=== PATIENT | female | born 1995 ===

== ENCOUNTER 2017-04-11 20:24 | Emergency (ER) | payer OTHER ==
[~2017-04-11] VITALS: Ht 147.3 cm; Wt 58.5 kg
[~2017-04-11 20:24] MED LIST: CEPH250SUA PO; CETI10 PO; CODACEE120 PO; DIPH25; EPIN0.15 IM; HYDR.5TC; IBUP200; KETO10 PO; METPHE10 PO; PRED20 PO; PRED5EL PO; SERT25 PO; TRIA80TC TOP; Veetids 500500 MG PO
[2017-04-11 20:52] LABS: Source, Urine Clean Catch
[2017-04-11 21:03] LABS: Bilirubin, Urine Neg (Neg); Blood, Urine Neg (Neg); Glucose Qualitative, Urine Neg (Neg); Ketones, Urine 3+ (Neg); Leukocyte Esterase, Urine 2+ (Neg); Nitrite, Urine Pos (Neg); Protein, Urine 1+ (Neg); Urobilinogen, Urine NORM (Normal)
[2017-04-11 21:10] LABS: Appearance, Urine Clear (Clear); Bacteria Many /hpf; Color, Urine Yellow (P-Yellow); Red Blood Cells, Urine 0-2 /hpf (0-2); Squamous Epithelial Cells Few /hpf (Few)
[2017-04-12 01:44] LABS: BASOPHILS ABSOLUTE AUTO 0.02 K/mm3 (0.00-0.23); BASOPHILS PERCENT AUTO 0 % (0-2); EOSINOPHILS ABSOLUTE AUTO 0.06 K/mm3 (0.00-0.68); EOSINOPHILS PERCENT AUTO 1 % (0-6); Hematocrit 45.2 % (33.0-51.0); Hemoglobin 15.4 g/dL (11.5-16.0); IMMATURE GRAN ABSOLUTE AUTO 0.02 K/mm3 (0.00-0.10); IMMATURE GRAN PERCENT AUTO 0 % (0-1); LYMPHOCYTES ABSOLUTE AUTO 2.39 K/mm3 (0.84-5.20); LYMPHOCYTES PERCENT AUTO 22 % (21-46); MONOCYTES ABSOLUTE AUTO 0.92 K/mm3 (0.16-1.47); MONOCYTES PERCENT AUTO 9 % (4-13); Mean Corpuscular HGB 28.7 pg (26.0-34.0); Mean Corpuscular HGB Conc 34.1 g/dL (31.5-36.5); Mean Corpuscular Volume 84 fL (80-100); Mean Platelet Volume 11.4 fL (9.1-12.4); NEUTROPHILS ABSOLUTE AUTO 7.28 K/mm3 (1.96-9.15); NEUTROPHILS PERCENT AUTO 68 % (41-73); Platelet Count 269 K/mm3 (150-400); RDW Coefficient Variation 13.9 % (11.7-14.2); RDW Standard Deviation 42.6 fL (35.1-46.3); Red Blood Cell Count 5.37 M/mm3 (3.80-5.20); White Blood Cell Count 10.69 K/mm3 (4.00-11.30)
[2017-04-12 02:00] LABS: Alanine Aminotransfer (ALT/SGP 20 U/L (12-78); Albumin, Blood 3.6 g/dL (3.4-5.0); Albumin/Globulin Ratio 0.8 (0.8-1.8); Alk Phos 101 U/L (50-136); Anion Gap 8 mmol/L (6-16); Aspartate Aminotrans (AST/SGOT 23 U/L (12-37); Bilirubin, Total 0.7 mg/dL (0.1-1.0); Blood Urea Nitrogen 10 mg/dL (8-24); Bun/Creatinine Ratio 13.8 (12.0-20.0); CO2, Blood 24 mmol/L (21-32); Calcium, Blood 9.1 mg/dL (8.5-10.1); Chloride, Blood 105 mmol/L (98-108); Creatinine, Blood 0.73 mg/dL (0.40-1.00); Globulin, Blood 4.3 g/dL (2.2-4.0); Glomerular Filtration Rate >60 (60-); Glucose, Blood 83 mg/dL (70-99); Potassium, Blood 3.6 mmol/L (3.5-5.5); Sodium, Blood 137 mmol/L (136-145); Total Protein, Blood 7.9 g/dL (6.4-8.2)
[2017-04-12] MEDS ORDERED: CEPH500 PO (02:19)
== END 2017-04-12 02:41 | disposition home or self-care (01) ==
LOC: ER 20:24
PROVIDERS: Emergency Medicine
DX: N39.0 Urinary tract infection, site not specified (principal); F17.200 Nicotine dependence, unspecified, uncomplicated
CPT/HCPCS: 36415; 80053; 81001; 81025; 83690; 85025; 87077; 87086; 87186; 96365; 96375; 99283; J0696; J2405; J7030

== ENCOUNTER 2017-05-06 12:20 | Emergency (ER) | payer OTHER ==
[~2017-05-06] VITALS: Ht 147.3 cm; Wt 61.7 kg
[~2017-05-06 12:20] MED LIST changes: +CEPH500 PO
== END 2017-05-06 15:00 | disposition home or self-care (01) ==
LOC: ER 12:20
DX: J02.9 Acute pharyngitis, unspecified (principal); M25.512 Pain in left shoulder; F90.9 Attention-deficit hyperactivity disorder, unspecified type; F17.200 Nicotine dependence, unspecified, uncomplicated
CPT/HCPCS: 87081; 87430; 96372; 99283; J1885

== ENCOUNTER 2018-06-21 14:51 | Emergency (ER) | payer SELFPAY ==
[~2018-06-21] VITALS: Ht 147.3 cm; Wt 77.1 kg
[2018-06-21 16:42] LABS: Source, Urine Clean Catch
[2018-06-21 16:46] LABS: Appearance, Urine Clear (Clear); Bilirubin, Urine Neg (Neg); Blood, Urine Neg (Neg); Color, Urine Yellow (P-Yellow); Glucose Qualitative, Urine Neg (Neg); Ketones, Urine 4+ (Neg); Leukocyte Esterase, Urine Neg (Neg); Nitrite, Urine Neg (Neg); Protein, Urine 2+ (Neg); Specific Gravity, Urine 1.005 (1.003-1.022); Urobilinogen, Urine NORM (Normal)
[2018-06-21 16:59] LABS: Red Blood Cells, Urine 0-2 /hpf (0-2)
[2018-06-21 17:00] LABS: Bacteria Few /hpf; Renal Epithelial Rare /hpf (0-Rare); Squamous Epithelial Cells Mod /hpf (Few)
[2018-06-21] MEDS ORDERED: CEPH500 PO (17:20)
== END 2018-06-21 17:42 | disposition home or self-care (01) ==
LOC: ER 14:51
PROVIDERS: Physician Assistant
DX: N39.0 Urinary tract infection, site not specified (principal); R10.2 Pelvic and perineal pain; F17.200 Nicotine dependence, unspecified, uncomplicated
CPT/HCPCS: 81001; 81025; 96372; 99284; J1885

== ENCOUNTER → 2018-12-17 | Outpatient (CLI) | payer OTHER ==
[~2018-12-17] MED LIST changes: +OMEP20ER PO; +ONDA4 PO; +Oxycodone HCl5 M1
[2018-12-17 14:46] LABS: BASOPHILS ABSOLUTE AUTO 0.03 K/mm3 (0.00-0.23); BASOPHILS PERCENT AUTO 0 % (0-2); EOSINOPHILS ABSOLUTE AUTO 0.06 K/mm3 (0.00-0.68); EOSINOPHILS PERCENT AUTO 1 % (0-6); Hematocrit 46.1 % (33.0-51.0); Hemoglobin 15.7 g/dL (11.5-16.0); IMMATURE GRAN ABSOLUTE AUTO 0.03 K/mm3 (0.00-0.10); IMMATURE GRAN PERCENT AUTO 0 % (0-1); LYMPHOCYTES ABSOLUTE AUTO 1.43 K/mm3 (0.84-5.20); LYMPHOCYTES PERCENT AUTO 14 % (21-46); MONOCYTES ABSOLUTE AUTO 0.57 K/mm3 (0.16-1.47); MONOCYTES PERCENT AUTO 6 % (4-13); Mean Corpuscular HGB 29.2 pg (26.0-34.0); Mean Corpuscular HGB Conc 34.1 g/dL (31.5-36.5); Mean Corpuscular Volume 86 fL (80-100); Mean Platelet Volume 10.8 fL (9.1-12.4); NEUTROPHILS ABSOLUTE AUTO 8.32 K/mm3 (1.96-9.15); NEUTROPHILS PERCENT AUTO 80 % (41-73); Platelet Count 232 K/mm3 (150-400); RDW Coefficient Variation 12.7 % (11.7-14.2); RDW Standard Deviation 39.1 fL (35.1-46.3); Red Blood Cell Count 5.37 M/mm3 (3.80-5.20); White Blood Cell Count 10.44 K/mm3 (4.00-11.30)
[2018-12-17 14:55] LABS: Alanine Aminotransfer (ALT/SGP 204 U/L (12-78); Albumin, Blood 3.7 g/dL (3.4-5.0); Albumin/Globulin Ratio 0.8 (0.8-1.8); Alk Phos 238 U/L (40-126); Anion Gap 9 mmol/L (6-16); Aspartate Aminotrans (AST/SGOT 80 U/L (12-37); Bilirubin, Total 1.9 mg/dL (0.1-1.0); Blood Urea Nitrogen 11 mg/dL (8-24); Bun/Creatinine Ratio 10.6 (12.0-20.0); CO2, Blood 29 mmol/L (21-32); Calcium, Blood 8.9 mg/dL (8.5-10.1); Chloride, Blood 100 mmol/L (98-108); Creatinine, Blood 1.04 mg/dL (0.40-1.00); Globulin, Blood 4.9 g/dL (2.2-4.0); Glomerular Filtration Rate >60 (60-); Glucose, Blood 86 mg/dL (70-99); Potassium, Blood 3.7 mmol/L (3.5-5.5); Sodium, Blood 138 mmol/L (136-145); Total Protein, Blood 8.6 g/dL (6.4-8.2)
== END | disposition home or self-care (01) ==
LOC: LAB SHORT 14:40 → LAB EV 14:40
PROVIDERS: Physician Assistant Medical
DX: R10.13 Epigastric pain (principal)
CPT/HCPCS: 80053; 83690; 85025

== ENCOUNTER 2018-12-19 19:49 | Emergency (ER) | payer OTHER ==
[~2018-12-19] VITALS: Ht 147.3 cm; Wt 77.1 kg
[~2018-12-19 19:49] MED LIST changes: -OMEP20ER PO; -ONDA4 PO; -Oxycodone HCl5 M1
[2018-12-19] MEDS ORDERED: Oxycodone HCl5 M1 (20:13)
[2018-12-19] MEDS ORDERED: OMEP20ER PO (20:14)
[2018-12-19] MEDS ORDERED: ONDA4 PO (20:14)
[2018-12-19 20:33] LABS: BASOPHILS ABSOLUTE AUTO 0.04 K/mm3 (0.00-0.23); BASOPHILS PERCENT AUTO 0 % (0-2); EOSINOPHILS PERCENT AUTO 0 % (0-6); Hematocrit 44.8 % (33.0-51.0); Hemoglobin 15.2 g/dL (11.5-16.0); IMMATURE GRAN PERCENT AUTO 1 % (0-1); LYMPHOCYTES ABSOLUTE AUTO 0.65 K/mm3 (0.84-5.20); LYMPHOCYTES PERCENT AUTO 2 % (21-46); MONOCYTES ABSOLUTE AUTO 1.41 K/mm3 (0.16-1.47); MONOCYTES PERCENT AUTO 5 % (4-13); Mean Corpuscular HGB 29.6 pg (26.0-34.0); Mean Corpuscular HGB Conc 33.9 g/dL (31.5-36.5); Mean Corpuscular Volume 87 fL (80-100); NEUTROPHILS PERCENT AUTO 92 % (41-73); Platelet Count 259 K/mm3 (150-400); RDW Coefficient Variation 12.6 % (11.7-14.2); RDW Standard Deviation 39.7 fL (35.1-46.3); Red Blood Cell Count 5.14 M/mm3 (3.80-5.20)
[2018-12-19 21:02] LABS: Alanine Aminotransfer (ALT/SGP 117 U/L (12-78); Albumin, Blood 3.3 g/dL (3.4-5.0); Albumin/Globulin Ratio 0.9 (0.8-1.8); Alk Phos 170 U/L (50-136); Anion Gap 13 mmol/L (6-16); Aspartate Aminotrans (AST/SGOT 71 U/L (12-37); Bilirubin, Total 1.1 mg/dL (0.1-1.0); Blood Urea Nitrogen 6 mg/dL (8-24); CO2, Blood 17 mmol/L (21-32); Calcium, Blood 8.7 mg/dL (8.5-10.1); Chloride, Blood 108 mmol/L (98-108); Creatinine, Blood 0.67 mg/dL (0.40-1.00); Globulin, Blood 3.8 g/dL (2.2-4.0); Glomerular Filtration Rate >60 (60-); Glucose, Blood 174 mg/dL (70-99); Potassium, Blood 3.8 mmol/L (3.5-5.5); Sodium, Blood 138 mmol/L (136-145); Total Protein, Blood 7.1 g/dL (6.4-8.2)
== END 2018-12-19 23:56 | disposition short-term general hospital (02) ==
LOC: ER 19:49
PROVIDERS: Emergency Medicine
DX: K85.80 Other acute pancreatitis without necrosis or infection (principal); K80.50 Calculus of bile duct without cholangitis or cholecystitis without obstruction; F17.200 Nicotine dependence, unspecified, uncomplicated; Z79.899 Other long term (current) drug therapy; Z79.891 Long term (current) use of opiate analgesic
CPT/HCPCS: 36415; 74177; 80053; 83690; 84702; 85025; 96361; 96365-59; 96375; 96376; 99285-25; J0780; J1170; J2405; J2543; J2550; J7030; Q9967

== ENCOUNTER 2019-01-19 16:22 | Inpatient (IN) | payer OTHER ==
[~2019-01-19] VITALS: Ht 147.3 cm; Wt 70.5 kg
[2019-01-19 20:39] LABS: Base Excess Venous 0.1 mmol/L; Bicarbonate Venous 24.1 mmol/L (24.0-30.0); PCO2 Venous 34.5 mmHg (38-42); PO2 Venous 34.9 mmHg (38-42); pH Blood Venous 7.45 (7.34-7.37)
[2019-01-20 04:33] LABS: BASOPHILS ABSOLUTE AUTO 0.02 K/mm3 (0.00-0.23); BASOPHILS PERCENT AUTO 0 % (0-2); EOSINOPHILS ABSOLUTE AUTO 0.01 K/mm3 (0.00-0.68); EOSINOPHILS PERCENT AUTO 0 % (0-6); Hematocrit 36.1 % (33.0-51.0); Hemoglobin 11.7 g/dL (11.5-16.0); IMMATURE GRAN ABSOLUTE AUTO 0.07 K/mm3 (0.00-0.10); IMMATURE GRAN PERCENT AUTO 1 % (0-1); LYMPHOCYTES ABSOLUTE AUTO 1.21 K/mm3 (0.84-5.20); LYMPHOCYTES PERCENT AUTO 9 % (21-46); MONOCYTES ABSOLUTE AUTO 1.41 K/mm3 (0.16-1.47); MONOCYTES PERCENT AUTO 11 % (4-13); Mean Corpuscular HGB 28.2 pg (26.0-34.0); Mean Corpuscular HGB Conc 32.4 g/dL (31.5-36.5); Mean Platelet Volume 10.9 fL (9.1-12.4); NEUTROPHILS ABSOLUTE AUTO 10.26 K/mm3 (1.96-9.15); NEUTROPHILS PERCENT AUTO 79 % (41-73); Platelet Count 251 K/mm3 (150-400); RDW Coefficient Variation 13.9 % (11.7-14.2); RDW Standard Deviation 44.1 fL (35.1-46.3); Red Blood Cell Count 4.15 M/mm3 (3.80-5.20); White Blood Cell Count 12.98 K/mm3 (4.00-11.30)
[2019-01-20 04:46] LABS: Mean Corpuscular Volume 87 fL (80-100)
[2019-01-20 04:55] LABS: Anion Gap 8 mmol/L (6-16); Blood Urea Nitrogen 12 mg/dL (8-24); Bun/Creatinine Ratio 18.5 (12.0-20.0); CO2, Blood 27 mmol/L (21-32); Calcium, Blood 8.3 mg/dL (8.5-10.1); Chloride, Blood 106 mmol/L (98-108); Creatinine, Blood 0.65 mg/dL (0.40-1.00); Glomerular Filtration Rate >60 (60-); Glucose, Blood 185 mg/dL (70-99); Sodium, Blood 141 mmol/L (136-145)
--- NOTE | 2019-01-20 06:19 | NUR ---
SHIFT SUMMARY NEW ADMIT THIS SHIFT. AAOX4. DISCOMFORT CONTROLLED WITH 1MG IV DILAUDID X2 THIS SHIFT, ZOFRAN DECREASED NAUSEA WITH X1 EMESIS NOTED THIS AM. IVF + ABX PER ORDERS. CONSULT FOR INTERVENTIONAL RADIOLOGY UNABLE TO BE CALLED THIS SHIFT, WILL NOTIFY DAY SHIFT RN TO INFORM MD. PT RESTING AT THIS TIME WITH CALL LIGHT IN JARRET, MIKE.
--- NOTE | 2019-01-20 10:16 | NUR ---
DR GIRON REPORTS TALKING TO RADIOLOGIST HERE. DR GIRON REPORTED THAT THE RADIOLOGIST WOULD NOT BE ABLE TO COMPLETE PROCEDURE HERE UNTIL TUESDAY. DR GIRON TALKED WITH PT AND DISCUSSING TRANSFER TO [facility].
[2019-01-20 10:24] LABS: Alanine Aminotransfer (ALT/SGP 21 U/L (12-78); Albumin, Blood 2.8 g/dL (3.4-5.0); Albumin/Globulin Ratio 0.7 (0.8-1.8); Alk Phos 69 U/L (50-136); Anion Gap 8 mmol/L (6-16); Aspartate Aminotrans (AST/SGOT 17 U/L (12-37); Bilirubin, Total 0.5 mg/dL (0.1-1.0); Blood Urea Nitrogen 12 mg/dL (8-24); Bun/Creatinine Ratio 19.4 (12.0-20.0); CO2, Blood 25 mmol/L (21-32); Calcium, Blood 8.5 mg/dL (8.5-10.1); Chloride, Blood 106 mmol/L (98-108); Creatinine, Blood 0.62 mg/dL (0.40-1.00); Globulin, Blood 3.8 g/dL (2.2-4.0); Glomerular Filtration Rate >60 (60-); Glucose, Blood 180 mg/dL (70-99); Potassium, Blood 3.1 mmol/L (3.5-5.5); Sodium, Blood 139 mmol/L (136-145); Total Protein, Blood 6.6 g/dL (6.4-8.2)
--- NOTE | 2019-01-20 14:19 | NUR ---
TRANSFER PT A/O. PT BEING TRANSFERRED TO [facility]. REPORT GIVEN TO CHAYITO BUTLER. PT BEEN RECENTLY MED FOR PAIN AND NAUSEA. TRANSPORT HERE TAKING PT. BELONGINGS AND PAPERWORK SENT WITH TRANSPORT/PT. PT REPORTS WILL CALL FAMILY/BOYFRIEND. IVF IN PLACE WITH NEW BAG PLACED PER REQ OF TRANSPORT THAT IV BAG WAS ALMOST COMPLETE.
== END 2019-01-20 14:15 | disposition short-term general hospital (02) | DRG 872 ==
LOC: ER 16:22 → SURS 16:23
PROVIDERS: Emergency Medicine; Family Medicine; Nurse Practitioner Acute Care; ADMIT Hospitalist
DX: A41.9 Sepsis, unspecified organism (principal); K86.3 Pseudocyst of pancreas; E87.6 Hypokalemia; Z87.891 Personal history of nicotine dependence
CPT/HCPCS: 36415; 74176; 80048; 80053; 82010; 82803; 83605; 83735; 84703; 85025; 87040; 96361; 96365; 96375; 96376; 99285-25; J1170; J2405; J2543; J2550; J3480; J7030; J7042; J7120

== ENCOUNTER → 2019-01-19 | Outpatient (CLI) | payer OTHER ==
[~2019-01-19] MED LIST changes: +OMEP20ER PO; +ONDA4 PO; +Oxycodone HCl5 M1
[2019-01-19 14:34] LABS: BASOPHILS ABSOLUTE AUTO 0.03 K/mm3 (0.00-0.23); BASOPHILS PERCENT AUTO 0 % (0-2); EOSINOPHILS ABSOLUTE AUTO 0.01 K/mm3 (0.00-0.68); EOSINOPHILS PERCENT AUTO 0 % (0-6); Hemoglobin 15.2 g/dL (11.5-16.0); IMMATURE GRAN ABSOLUTE AUTO 0.12 K/mm3 (0.00-0.10); IMMATURE GRAN PERCENT AUTO 1 % (0-1); LYMPHOCYTES ABSOLUTE AUTO 1.14 K/mm3 (0.84-5.20); LYMPHOCYTES PERCENT AUTO 6 % (21-46); MONOCYTES PERCENT AUTO 5 % (4-13); Mean Corpuscular HGB 28.1 pg (26.0-34.0); Mean Corpuscular HGB Conc 34.5 g/dL (31.5-36.5); Mean Corpuscular Volume 82 fL (80-100); Mean Platelet Volume 11.3 fL (9.1-12.4); NEUTROPHILS ABSOLUTE AUTO 15.75 K/mm3 (1.96-9.15); NEUTROPHILS PERCENT AUTO 88 % (41-73); Platelet Count 498 K/mm3 (150-400); RDW Coefficient Variation 13.8 % (11.7-14.2); RDW Standard Deviation 39.9 fL (35.1-46.3); White Blood Cell Count 17.95 K/mm3 (4.00-11.30)
[2019-01-19 14:44] LABS: Alanine Aminotransfer (ALT/SGP 12 U/L (12-78); Albumin, Blood 3.7 g/dL (3.4-5.0); Albumin/Globulin Ratio 0.7 (0.8-1.8); Alk Phos 100 U/L (40-126); Anion Gap 24 mmol/L (6-16); Aspartate Aminotrans (AST/SGOT 13 U/L (12-37); Bilirubin, Total 0.7 mg/dL (0.1-1.0); Blood Urea Nitrogen 12 mg/dL (8-24); CO2, Blood 19 mmol/L (21-32); Calcium, Blood 9.6 mg/dL (8.5-10.1); Chloride, Blood 92 mmol/L (98-108); Creatinine, Blood 0.86 mg/dL (0.40-1.00); Globulin, Blood 5.5 g/dL (2.2-4.0); Glomerular Filtration Rate >60 (60-); Glucose, Blood 152 mg/dL (70-99); Potassium, Blood 3.2 mmol/L (3.5-5.5); Sodium, Blood 135 mmol/L (136-145); Total Protein, Blood 9.2 g/dL (6.4-8.2)
== END | disposition home or self-care (01) ==
LOC: LAB SHORT 14:26 → LAB EV 14:26
PROVIDERS: Physician Assistant
DX: R10.9 Unspecified abdominal pain (principal); R73.9 Hyperglycemia, unspecified
CPT/HCPCS: 80053; 83036; 83690; 85025

== ENCOUNTER 2019-02-06 14:16 | Emergency (ER) | payer OTHER ==
[~2019-02-06] VITALS: Ht 147.3 cm; Wt 72.6 kg
[2019-02-06 15:53] LABS: BASOPHILS ABSOLUTE AUTO 0.15 K/mm3 (0.00-0.23); BASOPHILS PERCENT AUTO 1 % (0-2); EOSINOPHILS ABSOLUTE AUTO 0.02 K/mm3 (0.00-0.68); EOSINOPHILS PERCENT AUTO 0 % (0-6); Hemoglobin 12.1 g/dL (11.5-16.0); IMMATURE GRAN ABSOLUTE AUTO 1.13 K/mm3 (0.00-0.10); IMMATURE GRAN PERCENT AUTO 5 % (0-1); LYMPHOCYTES ABSOLUTE AUTO 1.31 K/mm3 (0.84-5.20); LYMPHOCYTES PERCENT AUTO 5 % (21-46); MONOCYTES ABSOLUTE AUTO 1.71 K/mm3 (0.16-1.47); MONOCYTES PERCENT AUTO 7 % (4-13); Mean Corpuscular HGB 27.3 pg (26.0-34.0); Mean Corpuscular HGB Conc 32.7 g/dL (31.5-36.5); Mean Corpuscular Volume 84 fL (80-100); Mean Platelet Volume 11.7 fL (9.1-12.4); NEUTROPHILS ABSOLUTE AUTO 20.88 K/mm3 (1.96-9.15); NEUTROPHILS PERCENT AUTO 83 % (41-73); Platelet Count 229 K/mm3 (150-400); RDW Coefficient Variation 13.9 % (11.7-14.2); RDW Standard Deviation 42.3 fL (35.1-46.3); Red Blood Cell Count 4.43 M/mm3 (3.80-5.20)
[2019-02-06 16:27] LABS: Alanine Aminotransfer (ALT/SGP 64 U/L (12-78); Albumin, Blood 2.2 g/dL (3.4-5.0); Albumin/Globulin Ratio 0.4 (0.8-1.8); Alk Phos 103 U/L (50-136); Anion Gap 13 mmol/L (6-16); Aspartate Aminotrans (AST/SGOT 39 U/L (12-37); Bilirubin, Total 0.6 mg/dL (0.1-1.0); Blood Urea Nitrogen 4 mg/dL (8-24); Bun/Creatinine Ratio 6.9 (12.0-20.0); CO2, Blood 24 mmol/L (21-32); Calcium, Blood 7.8 mg/dL (8.5-10.1); Chloride, Blood 96 mmol/L (98-108); Creatinine, Blood 0.58 mg/dL (0.40-1.00); Globulin, Blood 4.9 g/dL (2.2-4.0); Glomerular Filtration Rate >60 (60-); Glucose, Blood 127 mg/dL (70-99); Potassium, Blood 2.9 mmol/L (3.5-5.5); Sodium, Blood 133 mmol/L (136-145); Total Protein, Blood 7.1 g/dL (6.4-8.2)
[2019-02-06 19:50] LABS: Calcium, Ionized (POC) 0.92 mmol/L (1.10-1.46); Chloride (POC) 97 mmol/L (98-108); Creatinine (POC) 0.4 mg/dL (0.6-1.0); Glucose (ISTAT POC) 132 mg/dL (70-99); Hemoglobin (POC) 9.9 g/dL (12.0-16.0); Potassium (POC) 3.6 mmol/L (3.5-5.5); Sodium (POC) 136 mmol/L (135-148); Total CO2 (POC) 27 mmol/L (21-32)
== END 2019-02-06 19:50 | disposition short-term general hospital (02) ==
LOC: ER 14:16
PROVIDERS: Emergency Medicine; Physician Assistant
DX: G89.18 Other acute postprocedural pain (principal); R10.11 Right upper quadrant pain; Z87.891 Personal history of nicotine dependence
CPT/HCPCS: 36415; 74177; 80047; 80053; 83605; 83690; 84702; 85014; 85025; 87040; 96361; 96365-59; 96366; 96368; 96375; 99285-25; J0780; J1200; J2405; J2543; J2550; J2704; J3480; J7030; J7120; Q9967

== ENCOUNTER → 2020-10-20 | Outpatient (CLI) | payer OTHER ==
[2020-10-22 13:10] LABS: CHLAMYDIA BY NAA Negative (Negative); GONOCOCCUS BY NAA Negative (Negative); TRICH VAG BY NAA Negative (Negative)
== END ==
LOC: LAB 11:53 → LAB SHORT 11:53
PROVIDERS: Family Medicine
DX: Z11.3 Encounter for screening for infections with a predominantly sexual mode of transmission (principal)
CPT/HCPCS: 87491; 87591; 87661

== ENCOUNTER → 2020-11-10 | Outpatient (CLI) | payer BC | LOC: LAB 10:22 → LAB SHORT 10:22 | PROVIDERS: Family Medicine | DX: Z01.419 Encounter for gynecological examination (general) (routine) without abnormal findings (principal) | CPT/HCPCS: G0123 ==

== ENCOUNTER 2022-07-10 22:22 | Emergency (ER) | payer SELFPAY ==
[~2022-07-10] VITALS: Ht 147.3 cm; Wt 59.0 kg
== END 2022-07-11 00:04 | disposition home or self-care (01) ==
LOC: ER 22:22
DX: S01.25XA Open bite of nose, initial encounter (principal); W54.0XXA Bitten by dog, initial encounter; F17.210 Nicotine dependence, cigarettes, uncomplicated; Z23 Encounter for immunization
CPT/HCPCS: 12011; 90471; 90714; 99283-25

== ENCOUNTER 2025-01-13 20:18 | Inpatient (IN) | payer OTHER ==
[~2025-01-13] VITALS: Ht 149.9 cm; Wt 55.7 kg
[2025-01-13] MEDS ORDERED: NS 1,000 ML IV SCH (20:45)
[2025-01-13] MEDS ORDERED: Ondansetron HCl 2 MG / ML 2ML Vial IV ONE (20:45)
[2025-01-13 20:48] LABS: BASOPHILS ABSOLUTE AUTO 0.04 K/mm3 (0.00-0.23); BASOPHILS PERCENT AUTO 0 % (0-2); EOSINOPHILS ABSOLUTE AUTO 0.00 K/mm3 (0.00-0.68); EOSINOPHILS PERCENT AUTO 0 % (0-6); Hematocrit 43.5 % (33.0-51.0); Hemoglobin 15.7 g/dL (11.5-16.0); IMMATURE GRAN ABSOLUTE AUTO 0.13 K/mm3 (0.00-0.10); IMMATURE GRAN PERCENT AUTO 1 % (0-1); LYMPHOCYTES ABSOLUTE AUTO 1.53 K/mm3 (0.84-5.20); LYMPHOCYTES PERCENT AUTO 6 % (21-46); MONOCYTES ABSOLUTE AUTO 1.08 K/mm3 (0.16-1.47); MONOCYTES PERCENT AUTO 4 % (4-13); Mean Corpuscular HGB Conc 36.1 g/dL (31.5-36.5); Mean Corpuscular Volume 81 fL (80-100); NEUTROPHILS ABSOLUTE AUTO 22.06 K/mm3 (1.96-9.15); NEUTROPHILS PERCENT AUTO 89 % (41-73); NRBC ABSOLUTE 0.00 K/mm3 (0.00-0.02); NRBC Auto 0.0 /100 WBC (0.0-0.2); Platelet Count 291 K/mm3 (150-400); RDW Coefficient Variation 12.1 % (11.7-14.2); RDW Standard Deviation 35.4 fL (35.1-46.3)
[2025-01-13] MEDS ORDERED: Haloperidol Lactate Inj. 5 MG/ML Injection IV ONE (21:00)
[2025-01-13 21:10] LABS: Alanine Aminotransfer (ALT/SGP 31.0 U/L (12-78); Albumin, Blood 3.8 g/dL (3.4-5.0); Albumin/Globulin Ratio 0.9 (0.8-1.8); Anion Gap 23.0 mmol/L (3-11); Aspartate Aminotrans (AST/SGOT 43.0 U/L (12-37); Bilirubin, Total 1.7 mg/dL (0.1-1.0); Blood Urea Nitrogen 17.0 mg/dL (8-24); CO2, Blood 14.0 mmol/L (21-32); Calcium, Blood 9.2 mg/dL (8.5-10.1); Chloride, Blood 100.0 mmol/L (98-108); Creatinine, Blood 0.45 mg/dL (0.40-1.00); Globulin, Blood 4.1 g/dL (2.2-4.0); Glucose, Blood 372.0 mg/dL (70-99); Potassium, Blood 4.6 mmol/L (3.5-5.5); Sodium, Blood 132.0 mmol/L (136-145); Total Protein, Blood 7.9 g/dL (6.4-8.2)
[2025-01-13 21:47] LABS: Source, Urine Clean Catch
[2025-01-13 21:50] LABS: Bilirubin, Urine Neg (Neg); Glucose Qualitative, Urine 4+ (Neg); Ketones, Urine 4+ (Neg); Leukocyte Esterase, Urine Neg (Neg); Protein, Urine 2+ (Neg); Specific Gravity, Urine 1.025 (1.003-1.022); Urobilinogen, Urine NORM (Normal)
[2025-01-13 21:53] LABS: Color, Urine Yellow (P-Yellow)
[2025-01-13 21:57] LABS: Red Blood Cells, Urine Not Seen /hpf (0-2); White Blood Cells, Urine 0-2 /hpf (0-5)
[2025-01-13] MEDS ORDERED: Insulin Human Regular 100 UNIT in NS 100 ML IV SCH (22:30)
[2025-01-13 22:33] LABS: pH Blood Venous 7.39 (7.34-7.37)
[2025-01-14] VITALS (28 sets, daily range): BP systolic 93–149; BP diastolic 51–99
[2025-01-14] MEDS ORDERED: CefTRIAXone Sodium 1,000 MG in NS 50 ML IV ONE (01:50)
[2025-01-14] MEDS ORDERED: D5W-1/2NS KCl 20mEq 1,000 ML IV SCH ×2 (02:00→18:15)
[2025-01-14] MEDS ORDERED: FLU VACC TS2025-26(6MOS UP)/PF 45 MCG/0.5 ML SYRINGE IM SCH (02:15)
[2025-01-14] MEDS ORDERED: Ondansetron HCl 2 MG / ML 2ML Vial IV PRN (02:20)
[2025-01-14] MEDS ORDERED: Prochlorperazine Edisylate 10 mg Vial IV PRN (02:20)
[2025-01-14 02:43] LABS: Anion Gap 9.0 mmol/L (3-11); Blood Urea Nitrogen 15.0 mg/dL (8-24); CO2, Blood 22.0 mmol/L (21-32); Calcium, Blood 8.3 mg/dL (8.5-10.1); Chloride, Blood 108.0 mmol/L (98-108); Creatinine, Blood 0.4 mg/dL (0.40-1.00); Glucose, Blood 195.0 mg/dL (70-99); Potassium, Blood 3.4 mmol/L (3.5-5.5); Sodium, Blood 136.0 mmol/L (136-145)
[2025-01-14] MEDS ORDERED: Piperacillin/Tazobactam Sod 3.375 GM in NS 100 ML IV ONE (02:45)
[2025-01-14] MEDS ORDERED: Piperacillin/Tazobactam Sod 3.375 GM in NS 100 ML IV SCH (03:10)
[2025-01-14 04:31] LABS: pH Blood Venous 7.40 (7.34-7.37)
[2025-01-14] MEDS ORDERED: Pantoprazole Sodium 40 MG Injection IV SCH (06:00)
[2025-01-14 06:09] LABS: BASOPHILS ABSOLUTE AUTO 0.03 K/mm3 (0.00-0.23); BASOPHILS PERCENT AUTO 0 % (0-2); EOSINOPHILS ABSOLUTE AUTO 0.00 K/mm3 (0.00-0.68); EOSINOPHILS PERCENT AUTO 0 % (0-6); Hematocrit 33.6 % (33.0-51.0); Hemoglobin 12.2 g/dL (11.5-16.0); IMMATURE GRAN ABSOLUTE AUTO 0.15 K/mm3 (0.00-0.10); IMMATURE GRAN PERCENT AUTO 1 % (0-1); LYMPHOCYTES ABSOLUTE AUTO 1.41 K/mm3 (0.84-5.20); LYMPHOCYTES PERCENT AUTO 6 % (21-46); MONOCYTES ABSOLUTE AUTO 1.54 K/mm3 (0.16-1.47); MONOCYTES PERCENT AUTO 7 % (4-13); Mean Corpuscular HGB Conc 36.3 g/dL (31.5-36.5); Mean Corpuscular Volume 82 fL (80-100); NEUTROPHILS ABSOLUTE AUTO 19.04 K/mm3 (1.96-9.15); NEUTROPHILS PERCENT AUTO 86 % (41-73); NRBC ABSOLUTE 0.00 K/mm3 (0.00-0.02); NRBC Auto 0.0 /100 WBC (0.0-0.2); Platelet Count 240 K/mm3 (150-400); RDW Coefficient Variation 12.1 % (11.7-14.2); RDW Standard Deviation 36.3 fL (35.1-46.3)
[2025-01-14 06:29] LABS: Anion Gap 9.0 mmol/L (3-11); Blood Urea Nitrogen 12.0 mg/dL (8-24); CO2, Blood 22.0 mmol/L (21-32); Calcium, Blood 7.8 mg/dL (8.5-10.1); Chloride, Blood 109.0 mmol/L (98-108); Creatinine, Blood 0.44 mg/dL (0.40-1.00); Glucose, Blood 167.0 mg/dL (70-99); Magnesium, Blood 1.6 mg/dL (1.6-2.4); Phosphorus, Blood 2.6 mg/dL (2.5-4.9); Potassium, Blood 3.3 mmol/L (3.5-5.5); Sodium, Blood 137.0 mmol/L (136-145)
--- NOTE | 2025-01-14 06:54 | NUR ---
SHIFT SUMMARY: PT ARRIVED TO UNIT EARLY THIS MORNING. PT A&OX4 ON ARRIVAL AND REMAINS SO. PT ABLE TO MAKE NEEDS KNOWN AND MOVES AROUND THE ROOM INDEPENDENTLY, REQUIRING MINIMAL ASSIST W/CORDS. VITALS STABLE. AFEBRILE. DENIES PAIN. SBP SOFT ON ARRIVAL W/MAP 64. AFTER PT RECEIVING 1L FLUID BOLUS, SBP REMAINED STABLE W/ MAPS >65. HR LOW 100S, SINUS, NOTED TO INCREASE W/ACTIVITY TO 120S. PT DENIES CHEST PAIN. LUNGS CLEAR. PT ON RA. BREATHING EVEN AND UNLABORED. SATS 100%. ABD SOFT, BT HYPOACTIVE. USING TOILET INDEPENDENLTY TO VOID. THIS RN TO CONTINUE TO MONITOR AND REPORT TO ONCOMING RN.
[2025-01-14] MEDS ORDERED: Potassium Chl 20MEQ/Water100ML 100 ML IV STA (07:06)
[2025-01-14] MEDS ORDERED: D5W-1/2NS KCl 40mEq 1,000 ML IV SCH (07:30)
[2025-01-14] MEDS ORDERED: Lactobacil 2-S.Thermo-Bifido 1 1 Cap PO SCH (09:00)
[2025-01-14] MEDS ORDERED: Insulin Glargine 100 Unit/ML 3 ML SYR SC SCH ×2 (09:35→21:00)
--- NOTE | 2025-01-14 10:40 | NUR ---
GIRMA WAS AWAKE AND ALERT DURING ROUNDS WITH EACH PROVIDER, SHE WAS GIVEN SF JELLO PER REQUEST OF AND WENT ON TO VOMITING FOR OVER 20 MINUTES. SHE WAS GIVEN COMPAZINE AND ZOFRAN TO HELP. DID STOP IN TO SEE WELL. HE ANTICIPATES A BARIUM SWALLOW TODAY. PT IS BEING EDUCATED ABOUT DIABETES AND THE NEEDS SHE WILL HAVE REGARDING THIS NEW DIAGNOSIS. SHE IS AGREEABLE TO EDUCATION AND IS ACCEPTING. HER TRINA SCHWARTZ HAS BEEN PRESENT AND IN THE ROOM FOR THE MAJORITY OF THE VISITS WITH PROVIDERS, QUESTIONS HAVE BEEN ANSWERED ACCORDINGLY. [place] CABLE TESTERS HELPER WAS HERE BUT PATIENT WAS SLEEPING AFTER ROUNDS OF VOMITING AND MEDICATION. WILL CONTINUE TO EDUCATE. PT ADAMANTLY WANTS TO GO HOME TODAY.
[2025-01-14 11:09] LABS: Anion Gap 10.0 mmol/L (3-11); Blood Urea Nitrogen 10.0 mg/dL (8-24); CO2, Blood 20.0 mmol/L (21-32); Calcium, Blood 8.3 mg/dL (8.5-10.1); Chloride, Blood 111.0 mmol/L (98-108); Creatinine, Blood 0.49 mg/dL (0.40-1.00); Glucose, Blood 168.0 mg/dL (70-99); Potassium, Blood 3.8 mmol/L (3.5-5.5); Sodium, Blood 137.0 mmol/L (136-145)
[2025-01-14 11:55] LABS: CHOL/HDL RATIO 2.9; Cholesterol 133 mg/dL (50-200); HDL Cholesterol 46 mg/dL (>39); LDL/HDL RATIO 1.5; Low Density Lipoprotein Chol 70 mg/dL (0-110); Thyroid Stimulating Hormone 1.330 uIU/mL (0.360-4.800); Triglycerides 87 mg/dL (30-140); Very Low Density Lipoprot Chol 17 mg/dL (6-28)
[2025-01-14] MEDS ORDERED: Insulin Human Lispro 100 Units/ML 3ML Syringe SC SCH (12:00)
--- NOTE | 2025-01-14 12:54 | NUR ---
GIRMA WAS TAKEN TO THE RADIOLOGY DEPARTMENT AROUND 1130, SHE WAS UP THE BR PRIOR TO GOING. WHEELCHAIR RIDE TO DEPARTMENT, SMALL DELAY IN DEPARTMENT THEN PATIENT TO ROOM FOR XRAY. PT DID NOT TOLERATE THE FLUID FOR IMAGING, BEGAN THROWING UP AFTER XRAYS OBTAINED. RETURNED TO ICU, PT TURNED TO HER SIDE AND RESTING.
[2025-01-14 14:29] LABS: Anion Gap 10.0 mmol/L (3-11); Blood Urea Nitrogen 10.0 mg/dL (8-24); CO2, Blood 21.0 mmol/L (21-32); Calcium, Blood 8.0 mg/dL (8.5-10.1); Chloride, Blood 110.0 mmol/L (98-108); Creatinine, Blood 0.52 mg/dL (0.40-1.00); Glucose, Blood 307.0 mg/dL (70-99); Potassium, Blood 4.1 mmol/L (3.5-5.5); Sodium, Blood 137.0 mmol/L (136-145)
[2025-01-14] MEDS ORDERED: Insulin Human Regular 100 UNIT in NS 100 ML IV SCH (16:25)
--- NOTE | 2025-01-14 17:42 | NUR ---
GIRMA'S MOTHER AND SISTER VISITED THIS AFTERNOON, UPDATE GIVEN WHILE PT IN ROOM. SHE REMAINS VERY NAUSEATED. DID ILLICIT USE OF MARIJUANA ON A REGULAR BASIS. INSULIN DRIP RESTARTED PER ORDER OF . HE SPOKE WITH S/O EFREN ABOUT PT REMAINING OVERNIGHT THERE HAS BEEN LIMITED OPPORTUNITY FOR PATIENT TO RECEIVE EDUCATION FOR HOME CARE. PRINTED INFORMATION ABOUT DIETARY CHANGES, CARBOHYDRATE COUNTING, INSULIN USAGE AND NEW DIAGNOSIS OF DIABETES. THIS INFORMATION HAS BEEN PLACED IN DISCHARGE FOLDER AND GIVEN TO EFREN. THE MOTHER AND SISTER BOTH WERE ABLE TO REVIEW IT WELL. EDUCATION IS SPOKEN TO THE PATIENT WITH EVERY ENCOUNTER TO TRY TO RE-INFORCE THE INFORMATION.
--- NOTE | 2025-01-14 18:51 | NUR ---
ATTEMPT TO DRAW LABS FROM LEFT UPPER ARM POWER GLIDE, EFFORT UNSUCCESSFUL. SITE REDRESSED, FLUSHES WELL. LAB NOTIFIED TO COME AND DRAW PATIENT'S LABS. PT CONTINUES WITH WRETCHING AND VOMITING, ZOFRAN GIVEN.
[2025-01-14 19:31] LABS: Anion Gap 8.0 mmol/L (3-11); Blood Urea Nitrogen 11.0 mg/dL (8-24); CO2, Blood 20.0 mmol/L (21-32); Calcium, Blood 8.5 mg/dL (8.5-10.1); Chloride, Blood 113.0 mmol/L (98-108); Creatinine, Blood 0.46 mg/dL (0.40-1.00); Glucose, Blood 159.0 mg/dL (70-99); Potassium, Blood 3.6 mmol/L (3.5-5.5); Sodium, Blood 137.0 mmol/L (136-145)
[2025-01-14] MEDS ORDERED: D5W-1/2NS 1,000 ML IV SCH (19:50)
--- NOTE | 2025-01-14 19:53 | NUR ---
ASSUMPTION OF CARE ASSUMED CARE OF PT AT 1900 WITH SANDY BUTLER, RECIEVED REPORT FROM CIRO BUTLER. PT IS A&0 X4, ABLE TO MAKE NEEDS KNOWN AND MOVE EXTREMITIES EQUALLY AND BILATERALLY. CONTINUOUS CARDIAC MONITORING IS IN PLACE AND SHOWS SINUS RHYTHM, MAP >65. PT IS ON RA WITH SP02 >92%. PT IS ABLE TO AMBULATE TO THE TOILET. POWERGLIDE IS IN PLACE TO LUE, R WRIST PIV IS IN PLACE, AND L WRIST PIV IS IN PLACE. INSULIN IS INFUSING AT 1.8 U/HR. BED IN LOWEST POSITION, CALL LIGHT IN REACH, CARE CONTINUES.
[2025-01-14 23:25] LABS: Anion Gap 9.0 mmol/L (3-11); Blood Urea Nitrogen 10.0 mg/dL (8-24); CO2, Blood 20.0 mmol/L (21-32); Calcium, Blood 8.1 mg/dL (8.5-10.1); Chloride, Blood 111.0 mmol/L (98-108); Creatinine, Blood 0.48 mg/dL (0.40-1.00); Glucose, Blood 239.0 mg/dL (70-99); Potassium, Blood 4.2 mmol/L (3.5-5.5); Sodium, Blood 136.0 mmol/L (136-145)
[2025-01-15] VITALS (27 sets, daily range): BP systolic 100–157; BP diastolic 59–92
[2025-01-15] MEDS ORDERED: Metoclopramide HCl 5MG / ML 2ML Vial IV PRN (01:15)
[2025-01-15 03:22] LABS: BASOPHILS ABSOLUTE AUTO 0.04 K/mm3 (0.00-0.23); BASOPHILS PERCENT AUTO 0 % (0-2); EOSINOPHILS ABSOLUTE AUTO 0.00 K/mm3 (0.00-0.68); EOSINOPHILS PERCENT AUTO 0 % (0-6); Hematocrit 39.5 % (33.0-51.0); Hemoglobin 13.6 g/dL (11.5-16.0); IMMATURE GRAN ABSOLUTE AUTO 0.07 K/mm3 (0.00-0.10); IMMATURE GRAN PERCENT AUTO 0 % (0-1); LYMPHOCYTES ABSOLUTE AUTO 2.24 K/mm3 (0.84-5.20); LYMPHOCYTES PERCENT AUTO 12 % (21-46); MONOCYTES ABSOLUTE AUTO 1.04 K/mm3 (0.16-1.47); MONOCYTES PERCENT AUTO 6 % (4-13); Mean Corpuscular HGB Conc 34.4 g/dL (31.5-36.5); Mean Corpuscular Volume 86 fL (80-100); NEUTROPHILS ABSOLUTE AUTO 15.16 K/mm3 (1.96-9.15); NEUTROPHILS PERCENT AUTO 82 % (41-73); NRBC ABSOLUTE 0.00 K/mm3 (0.00-0.02); NRBC Auto 0.0 /100 WBC (0.0-0.2); Platelet Count 232 K/mm3 (150-400); RDW Coefficient Variation 12.2 % (11.7-14.2); RDW Standard Deviation 38.3 fL (35.1-46.3)
[2025-01-15 03:33] LABS: Magnesium, Blood 1.5 mg/dL (1.6-2.4)
[2025-01-15 03:34] LABS: Alanine Aminotransfer (ALT/SGP 24.0 U/L (12-78); Albumin, Blood 3.0 g/dL (3.4-5.0); Albumin/Globulin Ratio 1.0 (0.8-1.8); Anion Gap 10.0 mmol/L (3-11); Aspartate Aminotrans (AST/SGOT 15.0 U/L (12-37); Bilirubin, Total 1.0 mg/dL (0.1-1.0); Blood Urea Nitrogen 9.0 mg/dL (8-24); CO2, Blood 19.0 mmol/L (21-32); Calcium, Blood 8.5 mg/dL (8.5-10.1); Chloride, Blood 110.0 mmol/L (98-108); Creatinine, Blood 0.5 mg/dL (0.40-1.00); Globulin, Blood 3.1 g/dL (2.2-4.0); Glucose, Blood 137.0 mg/dL (70-99); Phosphorus, Blood 1.4 mg/dL (2.5-4.9); Potassium, Blood 3.8 mmol/L (3.5-5.5); Sodium, Blood 135.0 mmol/L (136-145); Total Protein, Blood 6.1 g/dL (6.4-8.2)
[2025-01-15] MEDS ORDERED: Magnesium Sulf 2 GM/Water 50ML 50 ML IV ONE (03:50)
--- NOTE | 2025-01-15 06:54 | NUR ---
END OF SHIFT SUMMARY PT IS A&0 X4, ABLE TO MAKE NEEDS KNOWN AND CAN MOVE EXTREMITIES EQUALLY AND BILATERALLY. CONTINUOUS CARDIAC MONITORING IS IN PLACE AND SHOWS SINUS RHYTHM WITH OCCANSIONAL SOCORRO AND TACHY EPISODES, MAP >65. PT IS ON RA WITH SP02 >92%. PT REPORTS NAUSEA THROUGHOUT THE NIGHT, MEDICATED PER EMAR. PT IS ABLE TO TRANSFER INDEPENDENTLY TO TOILET. POWERGLIDE IS IN PLACE TO LUE, L WRIST AND R WRIST ARE IN PLACE. INSULIN IS INFUSING AT 1.5 U/HR. WILL REPORT TO ONCOMING SHIFT.
[2025-01-15 07:48] LABS: Anion Gap 10.0 mmol/L (3-11); Blood Urea Nitrogen 8.0 mg/dL (8-24); CO2, Blood 20.0 mmol/L (21-32); Calcium, Blood 7.8 mg/dL (8.5-10.1); Chloride, Blood 108.0 mmol/L (98-108); Creatinine, Blood 0.47 mg/dL (0.40-1.00); Glucose, Blood 209.0 mg/dL (70-99); Potassium, Blood 3.4 mmol/L (3.5-5.5); Sodium, Blood 135.0 mmol/L (136-145)
[2025-01-15] MEDS ORDERED: Potassium Phosphate Dibasic 15 MM in Dextrose 5% 250 ML IV SCH (09:30)
[2025-01-15] MEDS ORDERED: Sodium Phosphate 15 MM in Dextrose 5% 250 ML IV SCH (09:30)
[2025-01-15] MEDS ORDERED: Haloperidol Lactate Inj. 5 MG/ML Injection IV PRN (09:55)
[2025-01-15] MEDS ORDERED: Enoxaparin 40 MG/0.4 ML SYR SC SCH (12:00)
[2025-01-15] MEDS ORDERED: Potassium Chl 20MEQ/Water100ML 100 ML IV ONE ×2 (15:00→16:30)
[2025-01-15] MEDS ORDERED: Insulin Glargine 100 Unit/ML 3 ML SYR SC SCH (15:30)
[2025-01-15] MEDS ORDERED: Insulin Human Lispro 100 Units/ML 3ML Syringe SC SCH ×2 (16:30→17:30)
[2025-01-15 17:02] LABS: Anion Gap 9.0 mmol/L (3-11); Blood Urea Nitrogen 6.0 mg/dL (8-24); CO2, Blood 21.0 mmol/L (21-32); Calcium, Blood 7.4 mg/dL (8.5-10.1); Chloride, Blood 109.0 mmol/L (98-108); Creatinine, Blood 0.46 mg/dL (0.40-1.00); Glucose, Blood 142.0 mg/dL (70-99); Magnesium, Blood 2.0 mg/dL (1.6-2.4); Potassium, Blood 3.8 mmol/L (3.5-5.5); Sodium, Blood 135.0 mmol/L (136-145)
--- NOTE | 2025-01-15 18:23 | NUR ---
SHIFT SUMMARY NO ACUTE EVENTS DURING SHIFT. PT REMAINS ALERT, ORIENTED AND COOPERATIVE W/ CARE. PT TRANSISTIONED OFF INSULIN DRIP AT APPROX 1700. PT HAD PERSISTENT NAUSEA T/O DAY- ENDORSES DAILY HABITUAL MARIJUANA USE FOR MANY YEARS. PROVIDER NOTIFIED AND PT GIVEN PRN HALDOL AND CAPSAICIN CREAM W/ GOOD RELIEF. PT TOLERATING PO FLUIDS AND FOODS, BUT INTAKE IS MINIMAL. PT REPEATEDLY ENCOURAGED TO EAT/DRINK. MOTHER AT BEDSIDE AND PLANS TO STAY OVERNIGHT W/ PT. PT TOOK MULTIPLE WALKS AROUND HOSPITAL TODAY W/ RN GI PHYSICIAN. INDEPENDENT W/ BLADDER/BOWEL NEEDS IN ROOM. LINE ASSIST. PT ON ROOM AIR W/ CLEAR LUNG SOUNDS. SINUS SOCORRO ON MONITOR, RATE OF 60S. BP STABLE W/ MAPS>65. PT AFEBRILE. APPEARS PALE. NO SKIN ISSUES. PG TO CHARLES AND LFA PATENT AND INFUSING. POTASSIUM AND ZOSYN RUNNING ORDERED. PT USING CALL LIGHT APPROPRIATELY. BED IN LOWEST POSITION. PLAN TO DISCHARGE TOMORROW. AUTOMATIC CENTRIFUGAL STATION OPERATOR TO ROOM TODAY TO ASSIST W/ ESTABLISHING PT AT [facility] FOR FOLLOW UP. HEADRIG SAWYER TO ROOM FOR TEACHING. DIABETIC TEACHING REINFORCED BY THIS RN, PT WAS ABLE TO GIVE HERSELF DOSE OF SC INSULIN. PLAN OF CARE ONGOING.
--- NOTE | 2025-01-15 19:39 | NUR ---
ASSUMPTION OF CARE ASSUMED CARE OF PT AT 1900 WITH ARMAND BUTLER, RECIEVED REPORT FROM JOSE CARLOS BUTLER. PT IS A&0 X4, ABLE TO MAKE NEEDS KNOWN AND CAN MOVE EXTREMITES EQUALLY AND BILATERALLY. CONTINUOUS CARDAIC MONTIORING IS IN PLACE, MAP >65. PT IS ON RA WITH SP02 >92%. PT CAN MOVE INDEPENDENTLY TO TOILET. POWERGLIDE TO LUE IS IN PLACE, AND PIV TO L WRIST IS IN PLACE. CARE CONTINUES.
[2025-01-15 21:07] LABS: Anion Gap 11.0 mmol/L (3-11); Blood Urea Nitrogen 6.0 mg/dL (8-24); CO2, Blood 20.0 mmol/L (21-32); Calcium, Blood 7.7 mg/dL (8.5-10.1); Chloride, Blood 108.0 mmol/L (98-108); Creatinine, Blood 0.52 mg/dL (0.40-1.00); Glucose, Blood 163.0 mg/dL (70-99); Magnesium, Blood 1.9 mg/dL (1.6-2.4); Potassium, Blood 4.2 mmol/L (3.5-5.5); Sodium, Blood 135.0 mmol/L (136-145)
[2025-01-15 21:29] LABS: SERUM, C-PEPTIDE 0.3 ng/mL (0.5-3.3)
[2025-01-16] VITALS (17 sets, daily range): BP systolic 103–149; BP diastolic 64–88
[2025-01-16 03:13] LABS: BASOPHILS ABSOLUTE AUTO 0.02 K/mm3 (0.00-0.23); BASOPHILS PERCENT AUTO 0 % (0-2); EOSINOPHILS ABSOLUTE AUTO 0.01 K/mm3 (0.00-0.68); EOSINOPHILS PERCENT AUTO 0 % (0-6); Hematocrit 35.0 % (33.0-51.0); Hemoglobin 12.4 g/dL (11.5-16.0); IMMATURE GRAN ABSOLUTE AUTO 0.03 K/mm3 (0.00-0.10); IMMATURE GRAN PERCENT AUTO 0 % (0-1); LYMPHOCYTES ABSOLUTE AUTO 1.86 K/mm3 (0.84-5.20); LYMPHOCYTES PERCENT AUTO 18 % (21-46); MONOCYTES ABSOLUTE AUTO 0.60 K/mm3 (0.16-1.47); MONOCYTES PERCENT AUTO 6 % (4-13); Mean Corpuscular HGB Conc 35.4 g/dL (31.5-36.5); Mean Corpuscular Volume 84 fL (80-100); NEUTROPHILS ABSOLUTE AUTO 7.80 K/mm3 (1.96-9.15); NEUTROPHILS PERCENT AUTO 76 % (41-73); NRBC ABSOLUTE 0.00 K/mm3 (0.00-0.02); NRBC Auto 0.0 /100 WBC (0.0-0.2); Platelet Count 192 K/mm3 (150-400); RDW Coefficient Variation 11.9 % (11.7-14.2); RDW Standard Deviation 36.5 fL (35.1-46.3)
[2025-01-16 03:28] LABS: Magnesium, Blood 1.7 mg/dL (1.6-2.4); Phosphorus, Blood 3.0 mg/dL (2.5-4.9)
[2025-01-16 04:27] LABS: Anion Gap 13.0 mmol/L (3-11); Blood Urea Nitrogen 6.0 mg/dL (8-24); CO2, Blood 18.0 mmol/L (21-32); Calcium, Blood 7.8 mg/dL (8.5-10.1); Chloride, Blood 106.0 mmol/L (98-108); Creatinine, Blood 0.48 mg/dL (0.40-1.00); Glucose, Blood 184.0 mg/dL (70-99); Potassium, Blood 4.2 mmol/L (3.5-5.5); Sodium, Blood 133.0 mmol/L (136-145)
[2025-01-16] MEDS ORDERED: Sodium Bicarb 8.4% Inj 100 MEQ in Sodium Chloride 0.45% 1,000 ML IV SCH (05:35)
[2025-01-16] MEDS ORDERED: Sodium Bicarb 8.4% 1 MEQ/ML 50 ML Vial IV ONE (05:35)
--- NOTE | 2025-01-16 06:09 | NUR ---
END OF SHIFT SUMMARY PT IS A&0 X4, ABLE TO MAKE NEEDS KNOWN AND CAN MOVE EXTREMITIES EQUALLY AND BILATERALLY. CONTINUOUS CARDIAC MONITORING IS IN PLACE SHOWING SINUS RYHTHM WITH OCCASIONAL SOCORRO EPISODES IN THE 50'S, MAP >65. PT IS ON RA WITH SP02 >92%. PT DID NOT REPORT OF NAUSEA THIS SHIFT. PT IS INDEPENDENT TO THE TOILET. POWERGLIDE TO LUE IS IN PLACE AND L WRIST PIV IS IN PLACE. DR. MCCABE IS NOTIFIED OF AM LABS, NEW ORDERS RECIEVED. BED IN LOWEST POSITOIN, CALL LIGHT IN REACH, WILL REPORT TO ONCOMING SHIFT.
[2025-01-16 06:52] LABS: ISLET CELL CYTOPLASMIC AB, IGG <1:4 (<1:4)
--- NOTE | 2025-01-16 07:05 | NUR ---
Assumed care 0700-- pt is awake and in the chair this morning. She is alert and oriented x 4. She states she is feeling ok currently but receintly this am she vomitted and staff gave haldol. She has a heating pad on abdomen. Bicarb gtt at 100ml/hr just started to left powerglide iv, which flushed easily. Will follow up for treatment plan and medication. No acute needs at this time.
--- NOTE | 2025-01-16 09:12 | NUR ---
UPDATE: PATIENT STILL UP IN CHAIR. ATE ONLY 25% OF BREAKFAST. SHE GOT HER TOTAL OF 7 UNITS OF SHORT ACTING INSULIIN AND 10 UNITS POST BREAKFAST OF HER LONG ACTING INSULIN. SHE ALSO GOT HER LOVENOX SQ. LAB WAS NOT ABLE TO DRAW FOR HER 0800 LAB SO A NEW POWERGLIDE WAS PLACED INTO RIGHT UPPER ARM AND LABS WERE DRAWN FROM THAT AND SENT OFF NOW. PATIENT TOLERATED THE PROCEDURE WELL. NO NAUSEA OR VOMITING SINCE EARLY THIS AM. DR'S CAME BY AND BICARB GTT WAS CHANGED TO LR AT 200/HR. IV TO LEFT HAND WAS DISCONTINUED D/T TENDERNESS AND MORE SWOLLEN POST ANTIBIOTIC GIVEN. TIP WAS STILL INTACT. AWAITING LAB RESULTS.
[2025-01-16 09:36] LABS: Anion Gap 9.0 mmol/L (3-11); Blood Urea Nitrogen 7.0 mg/dL (8-24); CO2, Blood 24.0 mmol/L (21-32); Calcium, Blood 7.9 mg/dL (8.5-10.1); Chloride, Blood 102.0 mmol/L (98-108); Creatinine, Blood 0.57 mg/dL (0.40-1.00); Glucose, Blood 252.0 mg/dL (70-99); Potassium, Blood 4.1 mmol/L (3.5-5.5); Sodium, Blood 131.0 mmol/L (136-145)
--- NOTE | 2025-01-16 12:15 | NUR ---
Pt. is awake and sitting up in a chair when she welcomes my visit. Pt. is pleasant. Pt. displays evidence of not being interested in her lunch. Facilitates a short life review. While Pt. denied being a person of loretta, the Pt. verbalized gratitude for the spiritual care visit.
[2025-01-16] MEDS ORDERED: Insulin Human Lispro 100 Units/ML 3ML Syringe SC SCH (12:30)
--- NOTE | 2025-01-16 12:47 | NUR ---
UPDATES/PROGRESS PATIENT UP IN HALLS OF HOSPITAL WITH STAFF WALKING AROUND WITH IV POLE KEEPING THE LR GOING AT 200ML/HR. NOON LABS DRAWN S/P LUNCH TIME. SHE DID GET 9 UNITS OF INSULIN AT LUNCH. VS STABLE. NO NAUSEA OR VOMITTING AT THIS TIME. PT EAGER TO GO HOME TODAY.
[2025-01-16 12:50] LABS: Anion Gap 10.0 mmol/L (3-11); Blood Urea Nitrogen 7.0 mg/dL (8-24); CO2, Blood 25.0 mmol/L (21-32); Calcium, Blood 8.1 mg/dL (8.5-10.1); Chloride, Blood 100.0 mmol/L (98-108); Creatinine, Blood 0.44 mg/dL (0.40-1.00); Glucose, Blood 205.0 mg/dL (70-99); Potassium, Blood 3.7 mmol/L (3.5-5.5); Sodium, Blood 131.0 mmol/L (136-145)
[2025-01-16] MEDS ORDERED: CAPSAICIN60 G1 TOP (15:12)
[2025-01-16] MEDS ORDERED: HALO2 PO (15:14)
[2025-01-16] MEDS ORDERED: DEX4 GLUCOSE33 G2 PO (15:14)
[2025-01-16] MEDS ORDERED: BASAGLAR K100 UNIT/1 SC ×2 (15:16→15:18)
[2025-01-16] MEDS ORDERED: BASAGLAR K100 UNIT/1 (15:20)
[2025-01-16] MEDS ORDERED: INSULANPEN SC (15:22)
[2025-01-16 15:28] LABS: GLUTAMIC ACID DECARBOXYLASE AB <5.0 IU/mL (0.0-5.0)
--- NOTE | 2025-01-16 15:45 | NUR ---
PT EAGER TO GO HOME. RIDE HERE. PATIENT RECIEVED DC INFORMATION AND PACKET ON DIABETES EDUCATIONS. REVIEWED MEDICATION TREATMENT PLAN AND WHO SHE IS FOLLOWING UP WITH WITH THE DR TOMORROW AT [facility]. PAPERWORK IS SIGNED AND PT WALKED OUT OF HOSPITAL.
[2025-01-16 19:10] LABS: TISSUE TRANSGLUTAMINAS TTG,IGA <1.02 FLU (0.00-4.99)
[2025-01-16] MEDS ORDERED: Insulin Glargine 100 Unit/ML 3 ML SYR SC SCH (21:00)
== END 2025-01-16 15:45 | disposition home or self-care (01) | DRG 639 ==
LOC: ER 20:18 → ICUE 01-14 02:13
PROVIDERS: Emergency Medicine; Internal Medicine; ADMIT Student in an Organized Health Care Education/Training Program
DX: E11.10 Type 2 diabetes mellitus with ketoacidosis without coma (principal); J98.2 Interstitial emphysema; E87.6 Hypokalemia; F41.9 Anxiety disorder, unspecified; F10.90 Alcohol use, unspecified, uncomplicated; Z79.899 Other long term (current) drug therapy; Z90.49 Acquired absence of other specified parts of digestive tract; Z98.890 Other specified postprocedural states; Z87.891 Personal history of nicotine dependence
CPT/HCPCS: 36415; 71260; 74177; 74220; 80048; 80053; 80061; 81001; 82010; 82784; 82803; 82947; 83036; 83605; 83690; 83735; 84100; 84443; 84681; 84703; 85025; 86341; 86364; 87040; 87077; 96361; 96374-59; 96375; 99285-25; A9270; A9579; C1751; J0696; J0780; J1630; J1650; J1815; J2405; J2470; J2543; J2765; J3475; J3480; J7030; J7042; J7050; J7060; J7120; Q9967

== ENCOUNTER → 2025-02-18 | Outpatient (CLI) | payer OTHER ==
[~2025-02-18] MED LIST changes: +BASAGLAR K100 UNIT/1; +BASAGLAR K100 UNIT/1 SC; +CAPSAICIN60 G1 TOP; +DEX4 GLUCOSE33 G2 PO; +HALO2 PO; +INSULANPEN SC
[2025-02-18 21:08] LABS: Creatinine, Urine Random 70.20 mg/dL (27.00-270.00)
[2025-02-18 21:16] LABS: Microalb/Creat Ratio UR, Rand Unable to Calculate mg/g (0.000-30.000); Microalbumin, Random Urine <5.000 mg/L (0.000-20.000)
== END ==
LOC: LAB 10:30 → LAB SHORT 10:30
DX: E10.9 Type 1 diabetes mellitus without complications (principal)
CPT/HCPCS: 82043; 82570